=== PATIENT | male | born 1940 | race Caucasian/White ===

== ENCOUNTER → 2021-08-07 14:46 | Outpatient (CLI) | payer OTHER, SELFPAY | PROVIDERS: Visit Provider Nurse Practitioner | DX: Z20.822 Contact with and (suspected) exposure to COVID-19 (principal) | CPT/HCPCS: C9803; U0003; U0005 ==

== ENCOUNTER 2023-03-27 08:59 | Emergency (ER) | payer OTHER, SELFPAY ==
[2023-03-27] VITALS (8 sets, daily range): BP systolic 128–144; BP diastolic 72–87; PULSE 54–60; RESP 16; TEMP 36.6–36.8; O2SAT 96–98; BMI 26.6
--- NOTE | 2023-03-27 09:17 | CT_ITS ---
FINAL REPORT CLINICAL HISTORY: post CCY RUQ pain, decreased ability to void, 75 ml isovue 370 COMPARISON: None FINDINGS: CT OF THE ABDOMEN AND PELVIS WITH CONTRAST Axial CT images of the abdomen and pelvis were obtained after the administration of IV contrast. Coronal reformatted images were also obtained and reviewed. This study was performed with techniques to keep radiation doses as low as reasonably achievable (ALARA). Individualized dose reduction techniques using automated exposure control or adjustment of mA and/or kV according to the patient's size were employed. Abdomen: There is mild bibasilar atelectasis.. The heart is normal in size. The liver has an unremarkable appearance, without evidence of mass or biliary ductal dilatation. There is a small amount of ascites. Postcholecystectomy. There is fluid in the gallbladder fossa which may represent seroma, hematoma, or biloma. The spleen is unremarkable. No adrenal mass is present. The pancreas has an unremarkable appearance. The kidneys are normal, without evidence of mass or hydronephrosis. The aorta is normal in caliber. Pelvis: There is descending and sigmoid diverticulosis. The appendix is not well-visualized. Bladder wall thickening is likely inflammatory. No inflammatory process is seen. There is no evidence of mass or adenopathy. There is no evidence of bowel obstruction. There is a small amount of ascites in the pelvis. There are small inguinal hernias containing fat. IMPRESSION: Fluid in the gallbladder fossa may represent seroma, hematoma, or biloma. Diverticulosis. Small amount of ascites in the abdomen and pelvis. Bladder wall thickening is likely inflammatory. Reviewed, Interpreted and Dictated by Ac Fuller III, MD Transcribed by Ayanna Farnsworth Authenticated and [facility]
--- NOTE | 2023-03-27 09:19 | [facility].EDGENADL ---
Discharge Plan Disposition Patient Disposition: Xfer Short-Term Hosp Chief Complaint: Urogenital-Male Referrals Follow up/Referrals: Provider,Referral, [Primary Care Provider] - See instructions Activity Restrictions/Add. Instructions Additional Instructions/Restrictions: Please present immediately to [facility] to be admitted as we have discussed given that you have declined ambulance transport. Clinical Impressions Clinical Impression: Post surgical complication, Abdominal fluid collection Discharge ED Provider: Stefan Bae General Adult HPI General Chief complaint: Urogenital-Male Stated complaint: upper stomach pain, right side Time Seen by Provider: 03/27/23 09:03 History of Present Illness HPI narrative: Patient is an 82-year-old male with past medical history of hypertension, pacemaker placement, recent cholecystectomy who presents emergency department for multiple complaints. Patient states that he had a cholecystectomy approximately 2 weeks ago since then he has developed right upper quadrant abdominal pain, feelings of incomplete voiding. Patient is still having bowel movements and passing flatus, some of which are dark-colored and some of which are normal colored. Due to persistent pain and dysuria he presents here for continued evaluation. No other acute complaints at this time. [facility] Disclaimer: The information contained in this section may have been updated after the patient was seen, as this information can be updated by other users. Social History Smoking Status: Former smoker alcohol intake: never current occupational status: other Travel in the last 8 weeks: None ROS Obtained: Yes Systems reviewed as appropriate & no additional complaints except as documented Physical Exam General General appearance: alert and in no apparent distress Head Head exam: atraumatic and normocephalic Eye Eye exam: Present PERRL and EOMI ENT ENT exam: Present mucous membranes moist Neck Neck exam: Present normal inspection Chest Chest inspection: Present normal inspection and symmetric chest wall rise Respiratory Respiratory exam: Present normal lung sounds bilaterally; Absent respiratory distress Cardiovascular Cardiovascular exam: Present regular rate and normal rhythm Abdominal Exam Abdominal exam: Present soft and tenderness (Right upper quadrant, epigastric); Absent rebound or rigidity Extremities Exam Extremities exam: Present normal inspection Neurological Exam Neurological exam: Present alert Psychiatric Psychiatric exam: Present normal affect Skin Skin exam: Present warm and dry Medical Decision Making [place] Inquiry Pt receiving controlled substance: No Vital Signs: 03/27/23 09:15 03/27/23 09:30 03/27/23 10:00 Temperature 98.2 F Temperature Source Oral Pulse Rate 59 L Pulse Rate [Left] 60 Respiratory Rate 16 Blood Pressure 136/74 143/82 H Blood Pressure [Right Arm] 144/87 H Blood Pressure Mean 94 96 Blood Pressure Mean [Right Arm] 106 02 Sat by Pulse Oximetry 97 97 96 Oxygen Delivery Method Room Air Room Air 03/27/23 10:30 03/27/23 11:01 Temperature Temperature Source Pulse Rate 54 L Pulse Rate [Left] Respiratory Rate Blood Pressure 129/73 128/73 Blood Pressure [Right Arm] Blood Pressure Mean 91 100 Blood Pressure Mean [Right Arm] 02 Sat by Pulse Oximetry 96 98 Oxygen Delivery Method Room Air Room Air Lab Data Lab Results 03/27/23 09:05: Urine Color Yellow, Urine Appearance Clear, Urine pH 6.5, Ur Specific [place] 1.015, Urine Protein Negative, Urine Glucose (UA) Negative, Urine Ketones Negative, Urine Blood Negative, Urine Nitrate Negative, Urine Bilirubin Negative, Urine Urobilinogen 0.2, Ur Leukocyte Esterase Negative, Urine RBC None, Urine WBC Occasional, Ur Squamous Epith Cells Occasional, Urine Bacteria None 03/27/23 09:10: WBC 9.3, RBC 4.34 L, Hgb 10.7 L, Hct 35.4 L, MCV 81.5, MCH 24.7 L,
[2023-03-27 09:22] LABS: Microscopic, Urine URINE MICROSCOPIC (MICROSCOPIC)
[2023-03-27 09:25] LABS: Basophils # 0.1 K/mm3 (0-0.2); Basophils % 0.6 % (0.1-2.0); Eosinophils # 0.4 K/mm3 (0.0-0.4); Hematocrit 35.4 % (42.0-52.0); Hemoglobin 10.7 g/dL (14.1-18.0); Lymphocytes # 1.3 K/mm3 (0.7-4.5); Lymphocytes % 14.2 % (10-50); Mean Corpuscular HGB Conc 30.3 g/dL (31.8-35.4); Mean Corpuscular Hemoglobin 24.7 pg (27.0-31.2); Mean Corpuscular Volume 81.5 fl (80-94); Mean Platelet Volume 8.3 fl (7.4-10.4); Monocytes # 0.5 K/mm3 (0.1-1.0); Monocytes % 4.9 % (1.7-9.3); Neutrophils # 7.1 K/mm3 (1.8-7.8); Neutrophils % 76.3 % (37.0-80.0); Platelet Count 323 K/mm3 (142-424); Red Blood Count 4.34 M/mm3 (4.60-6.20); Red Cell Distribution Width 19.2 % (11.5-17.5); White Blood Count 9.3 K/mm3 (4.8-10.8)
[2023-03-27 09:29] LABS: Alanine Aminotransferase 35 U/L (12-78); Albumin Level 3.8 g/dl (3.5-5.0); Albumin/Globulin Ratio 1.1 (1.1-1.8); Alkaline Phosphatase 101 U/L (38-126); Aspartate Amino Transferase 36 U/L (17-59); Bilirubin,Total 0.6 mg/dl (0.2-1.3); Blood Urea Nitrogen 15 mg/dl (9-20); Calcium 8.6 mg/dl (8.4-10.2); Carbon Dioxide 30 mmol/L (22.0-30.0); Chloride 104 mmol/L (98-107); Creatinine Clearance Estimated 57 mL/min (50-200); Estimated Glomerular Filt Rate 64 ml/min (>60); GFR (African American) 77 ML/MIN (>60); Globulin 3.6 g/dL (1.3-3.2); Glucose 104 mg/dl (74-100); Lipase 64 U/L (23-300); Sodium 141 mmol/L (136-145); Total Protein,Serum 7.4 g/dl (6.3-8.2)
[2023-03-27 09:46] LABS: Appearance,Urine CLEAR (Clear); Bilirubin,Urine Negative (Negative); Blood, Urine Negative (Negative); Color,Urine YELLOW (Yellow); Glucose,Urine (UA) Negative (Negative); Ketones,Urine Negative (Negative); Leukocyte Esterase,Urine Negative (Negative); Nitrate,Urine Negative (Negative); PH,Urine 6.5 (5.0-8.5); Protein,Urine Negative (Negative); Specific Gravity, Urine 1.015 (1.005-1.030); Urobilinogen,Urine 0.2 EU/dl (0.2)
[2023-03-27 09:50] LABS: Squamous Epithelial Cell,Urine Occasional #/hpf (0-5); WBC,Urine Occasional #/hpf (0-3)
--- NOTE | 2023-03-27 10:39 | PC.NURSE ---
rounded on patient, patient was sleeping
--- NOTE | 2023-03-27 11:00 | PC.NURSE ---
Rounded on patient; no needs at this time. Spouse at BS. Call miguel within reach
--- NOTE | 2023-03-27 11:13 | PC.NURSE ---
speaking with [facility].
--- NOTE | 2023-03-27 11:25 | PC.NURSE ---
Dr. Bae speaking with general surgeon, Dr. Wilder [facility].
--- NOTE | 2023-03-27 11:31 | PC.NURSE ---
Radiology notified to burn imaging disc
[2023-03-27 11:37] LABS: Influenza A, PCR Not Detected (NotDetected); Influenza B, PCR Not Detected (NotDetected)
[2023-03-27 11:59] LABS: Coronavirus 19, PCR Detected (NotDetected)
--- NOTE | 2023-03-27 12:02 | PC.NURSE ---
Spoke with Goldie at the [place] transfer center to let her know of patients covid results; awaiting a call back with bed assignment.
== END 2023-03-27 12:52 | disposition short-term general hospital (02) ==
PROVIDERS: Emergency Provider Emergency Medicine
DX: K91.872 Postprocedural seroma of a digestive system organ or structure following a digestive system procedure (principal); G89.18 Other acute postprocedural pain; R10.11 Right upper quadrant pain; I10 Essential (primary) hypertension; Z87.891 Personal history of nicotine dependence
CPT/HCPCS: 74177; 80053; 81001; 83690; 85025; 87636; 99285; Q9967